=== PATIENT | female | born 1935 | race Caucasian/White ===

== ENCOUNTER 2016-11-03 17:56 | Emergency (ER) | payer OTHER, MEDICAID ==
[~2016-11-03] VITALS: Wt 69.0 kg
[~2016-11-03 17:56] MED LIST: CARV12.579 PO; GLIP5TAB13 PO; METF500T4 PO; OMEP20TA42 PO; OXYB5TAB PO; TRAM50TA2 PO; ZOLP10TA PO
[2016-11-03] MEDS ORDERED: ONDANSETRON 4 MG INJ IV STA (18:15)
[2016-11-03] MEDS ORDERED: SOD CHLORIDE 0.9% 1,000 ML IV STA (18:15)
[2016-11-03] MEDS ORDERED: FAMOTIDINE 20 MG INJ IV STA (18:15)
[2016-11-03 18:29] LABS: ADD SCAN DIFF NO
[2016-11-03 18:32] LABS: BASOPHIL # 0.1 10^3/ul (0.0-0.1); BASOPHILS % 0.4 % (0.0-2.0); EOSINOPHILS # 0.1 10^3/ul (0.0-0.5); EOSINOPHILS % 0.4 % (0.0-7.0); HEMOGLOBIN 11.9 g/dl (12.0-16.0); LYMPHOCYTES # 1.5 10^3/ul (0.8-2.9); LYMPHOCYTES % 11.1 % (15.0-51.0); MEAN CORPUSCULAR HEMOGLOBIN 29.1 pg (29.0-33.0); MEAN CORPUSCULAR HGB CONC 32.2 g/dl (32.0-37.0); MEAN CORPUSCULAR VOLUME 90.5 fl (82.0-101.0); MEAN PLATELET VOLUME 11.4 fl (7.4-10.4); MONOCYTE # 0.5 10^3/ul (0.3-0.9); NEUTROPHIL # 11.1 10^3/ul (1.6-7.5); NEUTROPHILS % 83.4 % (39.0-77.0); PLATELET COUNT 253 10^3/UL (140-415); RED BLOOD COUNT 4.09 10^6/ul (4.20-5.40); RED CELL DISTRIBUTION WIDTH 15.5 % (11.5-14.5); WHITE BLOOD COUNT 13.3 10^3/ul (4.8-10.8)
[2016-11-03 18:42] LABS: ALBUMIN 4.8 g/dl (3.3-4.9); ALBUMIN/GLOBULIN RATIO 1.71; BILIRUBIN,INDIRECT 0.2 mg/dl (0-1.1); BILIRUBIN,TOTAL 0.2 mg/dl (0.2-1.3); CALCIUM 8.8 mg/dl (8.4-10.2); CREATININE 1.3 mg/dl (0.44-1.00); POTASSIUM 3.8 mmol/L (3.5-5.1); TOTAL PROTEIN 7.6 g/dl (6.1-8.1)
--- NOTE | 2016-11-03 19:04 | RADRPT ---
PROCEDURE: CHEST 1VW CLINICAL INDICATION: Abdominal pain TECHNIQUE: Single frontal view of the chest was obtained COMPARISON: 12/08/2012 FINDINGS: The cardiac size is normal. Aortic vascular calcifications are demonstrated. There is no pulmonary vascular congestion. The lungs are clear. No consolidation, effusion, or pneumothorax. Mild degenerative changes of the visualized osseous structures are visualized. IMPRESSION: 1. No acute cardiopulmonary process. 2. Atherosclerosis. RPTAT:PP .eDmetrius Garcia MD, MD Date Time Electronically viewed and signed by .Demetrius Garcia MD, on 11/03/2016 19:03 .V/
[2016-11-03 19:37] LABS: ADD UMIC YES; URINE BILIRUBIN (Dip) NEGATIVE (NEGATIVE); URINE BLOOD (Dip) NEGATIVE (NEGATIVE); URINE COLOR LT. YELLOW (YELLOW); URINE GLUCOSE (Dip) NEGATIVE (NEGATIVE); URINE KETONES (Dip) 15 (NEGATIVE); URINE LEUKOCYTE ESTERASE (Dip) NEGATIVE (NEGATIVE); URINE NITRITE (Dip) NEGATIVE (NEGATIVE); URINE TOTAL PROTEIN (Dip) TRACE (NEGATIVE); URINE UROBILINOGEN (Dip) 0.2 E.U./dL (0.1-1.0)
[2016-11-03] MEDS ORDERED: CARV12.579 PO (19:45)
[2016-11-03] MEDS ORDERED: CELE200C PO (19:46)
[2016-11-03] MEDS ORDERED: DONE10TA7 PO (19:47)
[2016-11-03] MEDS ORDERED: CIPR500T4 PO (19:47)
[2016-11-03] MEDS ORDERED: GLIP5TAB13 PO (19:48)
[2016-11-03] MEDS ORDERED: FURO40TA4 PO (19:48)
[2016-11-03] MEDS ORDERED: IMIP25TA3 PO (19:49)
[2016-11-03] MEDS ORDERED: METF500T4 PO (19:49)
[2016-11-03] MEDS ORDERED: OMEP20CA16 PO (19:50)
[2016-11-03] MEDS ORDERED: ONDA4TAB8 PO (19:50)
[2016-11-03 19:51] LABS: TRANSITIONAL EPI CELLS,URINE MODERATE; URINE RBCS 0-2 /HPF (0)
[2016-11-03 19:52] LABS: BACTERIA,URINE FEW
[2016-11-03] MEDS ORDERED: POTA10TA97 PO (19:52)
[2016-11-03] MEDS ORDERED: SOLI10TA5 PO (19:52)
--- NOTE | 2016-11-03 21:16 | ERA ---
ER Documentation Chief Complaint Date/Time DATE: 11/03/16 TIME: 21:13 Chief Complaint Nausea vomiting for 2 weeks HPI This is a 81-year-old female who is had nausea and vomiting for the past 2 weeks on a daily basis. The patient vomits immediately after attempting any solid or liquid intake. The patient is seen her doctor twice for this and given medications for it but it is not working. The patient has lost 20-25 pounds over the past 2 weeks. Patient has not had a fever no diarrhea no abdominal pain no cough shortness of breath or dysuria. There has been no blood or bile in the vomit. Family brought her in today for their concerns for the rapid weight loss and her inability to retain fluids ROS All systems reviewed and are negative except as per history of present illness. Medications Home Meds Reported Medications Solifenacin* (Vesicare*) 10 Mg Tablet, 10 MG PO DAILY, TAB 11/03/16 Potassium Chloride (Klor-Con) 10 Meq Tablet.sa, 20 MEQ PO DAILY, TAB.SA 11/03/16 Ondansetron Hcl* (Zofran*) 4 Mg Tablet, 4 MG PO Q8H Y for NAUSEA AND OR VOMITING , TAB 11/03/16 Omeprazole* (Omeprazole*) 20 Mg Capsule.dr, 20 MG PO DAILY Y for QAM, #30 CAP 11/03/16 Metformin Hcl* (Metformin Hcl*) 500 Mg Tablet, 500 MG PO WITH BREAKFAST DINNE, # 60 TAB 11/03/16 Imipramine Hcl* (Imipramine Hcl*) 25 Mg Tablet, 25 MG PO HS, TAB 11/03/16 Glipizide* (Glipizide*) 5 Mg Tablet, 5 MG PO AC BREAKFAST DINNER, TAB 11/03/16 Furosemide* (Furosemide*) 40 Mg Tablet, 40 MG PO DAILY, TAB 11/03/16 Donepezil* (Donepezil*) 10 Mg Tablet, 10 MG PO DAILY, #30 TAB 11/03/16 Ciprofloxacin Hcl* (Ciprofloxacin Hcl*) 500 Mg Tablet, 500 MG PO Q12H for 10 Days, #20 TAB START 10/25/16 11/03/16 Celecoxib* (Celebrex*) 200 Mg Capsule, 200 MG PO DAILY, CAP 11/03/16 Carvedilol* (Carvedilol*) 12.5 Mg Tablet, 12.5 MG PO BID, #60 TAB 11/03/16 Discontinued Reported Medications Omeprazole (Omeprazole) 20 Mg Tablet.dr, 20 MG PO DAILY 05/12/12 Oxybutynin Chloride* (Oxybutynin Chloride* ER) 5 Mg/Blist Pack Tab.osm.24, 5 MG PO DAILY 01/02/11 Zolpidem Tartrate* (Ambien*) 10 Mg Tablet, 10 MG PO HS 01/02/11 Metformin* (Glucophage*) 500 Mg Tab, 500 MG PO BID 01/02/11 Carvedilol* (Carvedilol*) 12.5 Mg Tablet, 12.5 MG PO BID 01/02/11 Glipizide* (Glipizide*) 5 Mg Tablet, 5 MG PO BID 01/02/11 Tramadol HCl (Tramadol HCl) 50 Mg Tablet, 50 MG PO 4H PRN 01/02/11 Allergies Allergies: Coded Allergies: No Known Allergy (Unverified , 11/03/16) PMhx/Soc History of Surgery: Yes (BOTH KNEE SX, ANKLE SX, CSECTIONS, CHOLECYSTECTOMY) Anesthesia Reaction: No Hx Neurological Disorder: No Hx Respiratory Disorders: No Hx Cardiac Disorders: No Hx Psychiatric Problems: No Hx Miscellaneous Medical Probl: Yes (DM) Hx Alcohol Use: No Hx Substance Use: No Hx Tobacco Use: No Smoking Status: Never smoker FmHx Family History: No coronary disease Physical Exam Vitals Vital Signs Date Time Temp Pulse Resp B/P Pulse Ox O2 Delivery O2 Flow Rate FiO2 11/03/16 18:10 98.9 99 20 143/95 98 Physical Exam Const: Well-developed, well-nourished Head: Atraumatic, normocephalic Eyes: Normal Conjunctiva, PERRLA, EOMI, normal sclera, no nystagmus ENT: Normal External Ears, Nose and Mouth, slightly dry mucus membranes. Neck: Full range of motion. No meningismus, no lymphadenopathy. Resp: Clear to auscultation bilaterally, no wheezing, rhonchi, rales Cardio: Regular rate and rhythm, no murmurs, S1 S2 present Abd: Soft, non tender x 4, non distended. Normal bowel sounds, no guarding or rebound, no pulsitile abdominal masses or bruits Skin: No petechiae or rashes, no ecchymosis , no maculopapular rash Back: No midline or flank tenderness Ext: No cyanosis, or edema, FROM x 4, normal inspection, neurovascularly intact x 4 Neur: Awake and alert, STR 5/5 x 4, sensation intact x 4, no focal findings, cerebellum intact Psych: Normal Mood and Affect Result Diagram: 11/03/16181511/03/161815 Results 24 hrs Laboratory Tests Test 11/03/16 18:16 11/03/16 19:21 White Blood Count 13.310^3/ul Red Blood Count 4.0910^6/ul Hemoglobin 11.9g/dl Hematocrit 37.0% Mean Corpuscular Volume 90.5fl Mean Corpuscular Hemoglobin 29.1pg Mean Corpuscular Hemoglobin Concent 32.2g/dl Red Cell Distribution Width 15.5% Platelet Count 76707^3/UL Mean Platelet Volume 11.4fl Neutrophils % 83.4% Lymphocytes % 11.1% Monocytes % 4.0% Eosinophils % 0.4% Basophils % 0.4% Nucleated Red Blood Cells % 0.0/100WBC Neutrophils # 11.110^3/ul Lymphocytes # 1.510^3/ul Monocytes # 0.510^3/ul Eosinophils # 0.110^3/ul Basophils # 0.110^3/ul Nucleated Red Blood Cells # 0.010^3/ul Sodium Level 143mmol/L Potassium Level 3.8mmol/L Chloride Level 107mmol/L Carbon Dioxide Level 22mmol/L Anion Gap 18 Blood Urea Nitrogen 26mg/dl Creatinine 1.30mg/dl Glucose Level 165mg/dl Calcium Level 8.8mg/dl Total Bilirubin 0.2mg/dl Direct Bilirubin 0.00mg/dl Indirect Bilirubin 0.2mg/dl Aspartate Amino Transf (AST/SGOT) 39IU/L Alanine Aminotransferase (ALT/SGPT) 37IU/L Alkaline Phosphatase 76IU/L Total Protein 7.6g/dl Albumin 4.8g/dl Globulin 2.80g/dl Albumin/Globulin Ratio 1.71 Urine Color LT. YELLOW Urine Clarity SLIGHTLY CLOUDY Urine pH 5.0 Urine Specific [place] >=1.030 Urine Ketones 15 Urine Nitrite NEGATIVE Urine Bilirubin NEGATIVE Urine Urobilinogen 0.2 E.U./dL Urine Leukocyte Esterase NEGATIVE Urine Microscopic RBC 0-2/HPF Urine Microscopic WBC 0-2/HPF Urine Transitional Epithelial Cells MODERATE Urine Amorphous Urates MANY Urine Bacteria FEW Urine Hyaline Casts FEW Urine Fine Granular Casts FEW Urine Coarse Granular Casts FEW Urine Hemoglobin NEGATIVE Urine Glucose NEGATIVE% Urine Total Protein TRACE Current Medications Medications (Trade) Dose Ordered Sig/Mikel Route PRN Reason Start Time Stop Time Status Last Admin Dose Admin Sodium Chloride (NS) 1,000 ml @ 1,000 mls/hr Q1H STAT IV 11/03/16 18:15 11/03/16 19:14 DC 11/03/16 18:30 Ondansetron HCl (Zofran Inj) 4 mg ONCE STAT IV 11/03/16 18:15 11/03/16 18:16 DC 11/03/16 18:30 Famotidine (Pepcid Iv) 20 mg ONCE STAT IV 11/03/16 18:15 11/03/16 18:16 DC 11/03/16 18:30 Procedures/MDM PROCEDURE: CHEST 1VW CLINICAL INDICATION: Abdominal pain TECHNIQUE: Single frontal view of the chest was obtained COMPARISON: 12/08/2012 FINDINGS: The cardiac size is normal. Aortic vascular calcifications are demonstrated. There is no pulmonary vascular congestion. The lungs are clear. No consolidation, effusion, or pneumothorax. Mild degenerative changes of the visualized osseous structures are visualized. IMPRESSION: 1. No acute cardiopulmonary process. 2. Atherosclerosis. RPTAT:PP .Demetrius Garcia MD, Date Time Electronically viewed and signed by .Demetrius Garcia MD, on 11/03/2016 19:03 .V/ CC: JEANETTE DE PAZ DO The patient has had quite a significant weight loss. The patient may have some type of gastritis or peptic ulcer disease or esophagitis. Patient is failed outpatient therapy 2 so I will admit her for intractable nausea vomiting and weight loss. She may need some gastroenterology evaluation with endoscopy Departure Diagnosis: Primary Impression: Intractable nausea and vomiting Qualified Code: R11.2 - Intractable vomiting with nausea, unspecified vomiting type Additional Impression: Weight loss Condition: Stable JEANETTE DE PAZ DO Nov 03, 2016 21:16
[2016-11-03 23:00] VITALS: BP 142/70; PULSE 96; RESP 20; TEMP 98.3
== END 2016-11-03 23:45 | disposition short-term general hospital (02) ==
LOC: E/R 17:56
DX: R11.2 Nausea with vomiting, unspecified (principal); R63.4 Abnormal weight loss; E11.9 Type 2 diabetes mellitus without complications; Z79.84 Long term (current) use of oral hypoglycemic drugs
CPT/HCPCS: 36415; 71010; 80053; 81001; 85025; 96374; 96375; 99285; J2405; J7030

== ENCOUNTER 2017-08-05 17:31 | Inpatient (IN) | END 2017-08-09 14:35 | disposition home or self-care (01) | DRG 195 ==